=== PATIENT | female | born 1955 | race Caucasian/White ===

== ENCOUNTER 2019-02-10 05:54 | Inpatient (IN) | payer MEDICARE, OTHER ==
--- NOTE | 2019-02-05 18:13 | PREOPHP ---
DATE OF ADMISSION: 02/10/2019 The patient to have surgery with Dr. Taurus Smith 02/10/2019. Consultation requested by Dr. aTurus Smith for medical evaluation and clearance of a 63-year-old woman about to undergo surgery. Thank you, Dr. Smith, for allowing us to participate in the care of this patient. REASON FOR ADMISSION: Evangelina Amor, a 63-year-old woman, issues with her back, is currently being admitted for correction of the above problem. PAST MEDICAL AND SURGICAL HISTORY: In terms of her past medical and surgical history, she has not had any medical hospitalizations. From a surgical standpoint, had 3 sections and 1 vaginal delivery and also had an appendectomy. Other than that, she has had no other major surgical procedures, no other significant medical issues. She has not broken any bones. MEDICATIONS: She is currently taking the following medications: 1. Wellbutrin 450 mg a day. 2., Fetzima 80 mg daily 3. Baby aspirin. ALLERGIES: SHE IS NOT ALLERGIC TO ANY MEDICATIONS. SOCIAL HISTORY: The patient is , has 4 children plus 2 adopted children. One of her natural children has at age 24. She does not smoke. Alcohol socially. Does drink coffee. Has no difficulty sleeping at night. FAMILY HISTORY: Both parents are . Father of head and neck cancer at age 67. Mother at age 90 of old age, did have some mild dementia. One brother of kidney cancer. There is family history of heart and cancer as well as hypertension and stroke. REVIEW OF SYSTEMS: HEENT: Periodic migraine headaches. CARDIORESPIRATORY: Occasional chest discomfort possibly related to anxiety. GASTROINTESTINAL: No melena or hematemesis. GENITOURINARY: No urgency, frequency. GYNECOLOGIC: Post-menopause. MUSCULOSKELETAL: Positive for back pain. NEUROPSYCHIATRIC: Positive for depression. GENERAL HEALTH: As above. PHYSICAL EXAMINATION: VITAL SIGNS: The patient's blood pressure was 130/80, pulse was 76 and regular, respirations were 18, temperature 98. Height 4 feet 11 inches, weight 106 pounds. GENERAL: The patient was noted to be a well-developed, well-nourished female, alert and cooperative, in no apparent acute distress, oriented to time, place, and person. HEAD, EARS, EYES, NOSE AND THROAT: Head was atraumatic. The eyes: Pupils were equal, reactive to light and accommodation. Fundi were benign. Tympanic membranes were unremarkable. Nose was negative. Mouth was unremarkable. Fair oral hygiene was present. NECK: Supple without any rigidity. Trachea was midline. Thyroid was within normal limits. Neck veins were flat. Carotid pulses were equal. No bruits were heard. BACK: Exam was unremarkable. CHEST: Symmetrical. BREASTS AND AXILLARY: Exam did not reveal any obvious masses. LUNGS: Clear. HEART: PMI was in 5th intercostal space at the midclavicular line. A regular sinus rhythm was noted. No significant murmurs, rubs or gallops being elicited. ABDOMEN: Soft. Good bowel sounds were noted. No significant organomegaly, masses or tenderness. Scar from prior surgery being noted. GENITALIA AND PELVIRECTAL: Exam up to date per talent director. EXTREMITIES: Did not reveal any clubbing, edema or cyanosis. Peripheral pulses were physiologic. SKIN: Moist and warm without any eruptions. LYMPH NODES: No gross lymphadenopathy was noted. NEUROLOGIC: Exam was grossly intact. IMPRESSION 1. Lumbar disk disease, L4-L5, L5-S1, with an acute herniation. 2. Migraine headaches. 3. Depression. 4. Post-menopause. 5. Stable health. LABORATORY DATA: Review of laboratory and other data revealed the following: The patient's chemistry panel revealed normal electrolytes, random glucose 113. BUN, creatinine, calcium, uric acid, proteins were normal. Liver function tests revealed elevated alk phos, SGPT and SGOT; normal bilirubin. CBC, sed rate, UA, PT and PTT were basically normal. Some bacteria in the urine probably from urine sitting around a little bit too long. The patient was totally asymptomatic. DISCUSSION: Dr. Smith, I see no contraindication this patient undergoing current proposed surgery under desired form of anesthesia. I feel she is a suitable candidate at this particular point in time. I will be more than happy to follow her up with you during her stay at [facility]. Thank you again, Dr. Smith, for allowing us to participate in the care of this patient. Dictated By: SAUNDRA CALLAWAY MD SS/NTS Conf#: [id number] DID#: [id number] CC: TAURUS SMITH MD;*EndCC* MTDD
[2019-02-10] VITALS (23 sets, daily range): BP systolic 99–118; BP diastolic 53–80; PULSE 62–87; RESP 13–25; Ht 154.9 cm; Wt 47.4 kg
[~2019-02-10] VITALS: Ht 154.9 cm; Wt 47.4 kg
--- NOTE | 2019-02-10 06:44 | PREAC ---
Date/Time of Note Date/Time of Note DATE: 02/10/19 TIME: 06:43 Anesthesia Eval and Record Evaluation Time Pre-Procedure Interview DATE: 02/10/19 TIME: 06:43 Age 63 Sex female NPO: 8 hrs Preoperative diagnosis Herniated Lumbar Disc Planned procedure Lumbar L4-5 Microdisectomy Past Medical History Past Medical History: Includes Psych: Depression Surgery & Anesthesia Issues No known issue Meds Anticoagulation: No Beta Mikhail within 24 hr: No Reason Beta Mikhail not given: Pt. not on B-Mikhail Meds reviewed: Yes Allergies Coded Allergies: acetaminophen (Verified Adverse Reaction, Severe, CANNOT TAKE DUE TO LIVER DISEASE, 02/05/19) Allergies Reviewed: Yes Labs/Studies Labs Reviewed: Reviewed by anesthesiologist Blood Bank Test 02/10/19 05:51 Blood Product Summary Counts test: N/A Studies: ECG (NSR), CXR (WNL) Pre-procedure Exam Airway: Adequate mouth opening, Adequate thyromental dist Mallampati: Mallampati II Teeth: Normal Lung: Normal Heart: Normal ASA Physical Status ASA physical status: 2 Emergency: None Planned Anesthetic General/MAC: ETT Planned Pain Management Parenteral pain med Pre-operative Attestations Prior to commencing anesthesia and surgery, the patient was re-evaluated, there was verification of: *The patient's identity *The results of appropriate recent lab work and preoperative vital signs *The above evaluation not changing prior to induction *Anesthetic plan, risk benefits, alternative and complications discussed with patient/family; questions answered; patient/family understands, accepts and wishes to proceed. CHICA SANDERSON MD Feb 10, 2019 06:44
[2019-02-10] MEDS ORDERED: CEFAZOLIN 1 GM INJ ONE (06:53)
[2019-02-10] MEDS ORDERED: MIDAZOLAM 1 MG/ML 2 ML INJ ONE (06:53)
[2019-02-10] MEDS ORDERED: ROCURONIUM 50 MG INJ ONE (06:53)
[2019-02-10] MEDS ORDERED: PROPOFOL 20 ML ONE (06:53)
[2019-02-10] MEDS ORDERED: FENTAnyl 50 MCG/ML VIAL ONE ×3 (06:53→09:49)
[2019-02-10] MEDS ORDERED: GELATIN SIZE 100 SPONGE ONE (06:54)
[2019-02-10] MEDS ORDERED: THROMBIN 5000 UNIT VIAL ONE (06:54)
[2019-02-10] MEDS ORDERED: POLYMYXIN/BACITRACIN 1L IRRIG ONE (06:54)
[2019-02-10] MEDS ORDERED: BUPIVACAINE 0.25% (MPF) 30 ML INJ ONE (06:54)
--- NOTE | 2019-02-10 06:58 | HPN ---
Date/Time of Note Date/Time of Note DATE: 02/10/19 TIME: 06:57 Interval H&P Admission Note Pt. seen H&P reviewed: No system changes CHRISTIANO SMITH MD Feb 10, 2019 06:58
[2019-02-10] MEDS ORDERED: DIPHENHYDRAMINE 50 MG INJ IV PRN (07:00)
[2019-02-10] MEDS ORDERED: MEPERIDINE 25 MG INJ IV PRN (07:00)
[2019-02-10] MEDS ORDERED: METOCLOPRAMIDE 10 MG INJ IV PRN (07:00)
[2019-02-10] MEDS ORDERED: PHENYLephrine (100 MCG/ML) 10ML SYG ONE (07:00)
[2019-02-10] MEDS ORDERED: hydrALAzine 20 MG INJ IV PRN (07:00)
[2019-02-10] MEDS ORDERED: HYDROmorphONE 1 MG/5 ML IV SYRINGE IV PRN ×3 (07:00)
[2019-02-10] MEDS ORDERED: EPHEDrine 25 MG/5 ML SYG IV PRN (07:00)
[2019-02-10] MEDS ORDERED: LABETALOL HCL 20MG INJ IV PRN (07:00)
[2019-02-10] MEDS ORDERED: CEFAZOLIN 2 GM/50 ML (PMX) 50 ML IVPB SCH (07:00)
[2019-02-10] MEDS ORDERED: LACTATED RINGER'S 1,000 ML IV SCH ×2 (07:00)
[2019-02-10] MEDS ORDERED: FENTAnyl 50 MCG/ML VIAL IV PRN ×3 (07:00)
[2019-02-10] MEDS ORDERED: ONDANSETRON 4 MG INJ IV PRN ×2 (07:00→10:30)
[2019-02-10] MEDS ORDERED: URSO500T7 ORAL (07:34)
[2019-02-10] MEDS ORDERED: [UNRECOGNIZED DRUG - CODE] PO (07:34)
[2019-02-10] MEDS ORDERED: ARIP5TAB14 PO (07:34)
[2019-02-10] MEDS ORDERED: BUPR-75 PO (07:34)
[2019-02-10] MEDS ORDERED: LORA1TAB PO (07:34)
[2019-02-10] MEDS ORDERED: LABETALOL HCL 20MG INJ ONE (07:39)
[2019-02-10] MEDS ORDERED: METOCLOPRAMIDE 10 MG INJ ONE (07:49)
[2019-02-10] MEDS ORDERED: ONDANSETRON 4 MG INJ ONE (07:49)
[2019-02-10] MEDS ORDERED: DEXAMETHASONE 4 MG/ML 5 ML INJ ONE (07:49)
[2019-02-10] MEDS ORDERED: SUGAMMADEX SODIUM 200 MG/2 ML VIAL IV ONE (09:00)
--- NOTE | 2019-02-10 09:55 | PAC ---
Date/Time of Note Date/Time of Note DATE: 02/10/19 TIME: 09:54 Post-Anesthesia Notes Post-Anesthesia Note Last documented vital signs Vital Signs Date Temp Pulse Resp B/P (MAP) Pulse Ox O2 O2 Flow FiO2 Time Delivery Rate 02/10/19 98.4 80 16 113/62 100 Room Air 10:02 (79) Activity: WNL Respiratory function: WNL Cardiovascular function: WNL Mental status: Baseline Pain reasonably controlled: Yes Hydration appropriate: Yes Nausea/Vomiting absent: Yes CHICA SANDERSON MD Feb 10, 2019 09:55
--- NOTE | 2019-02-10 10:24 | SIPON ---
Date/Time of Note Date/Time of Note DATE: 02/10/19 TIME: 10:19 Operative Report Preoperative Diagnosis HNP L4-5 right (calcified) HNP L5-S1 right Postoperative Diagnosis Same Operation/Procedure Performed Right hemilaminotomy L4 Right hemilaminotomy L5 Microdiscectomy L4-5 and L5-S1 on the right Medial facetectomy and foraminotomy L4-5 and L5-S1 on the right Cosmetic wound closure (5 cm) Lateral localizing lumbar radiographs (2) Intraoperative nerve monitoring (2 hours and 45 minutes) Surgeon see signature line assistant buyer Vaishnavi Mobley PA-C Anesthesia: general Estimated blood loss: 10 - 50 ml's Transfusion Required none Specimen Disc material L4-5 and L5-S1 on the right Grafts/Implants none Complications none CHRISTIANO SMITH MD Feb 10, 2019 10:24
[2019-02-10] MEDS ORDERED: DIAZEPAM 5 MG/ML SYG IM PRN (10:30)
[2019-02-10] MEDS ORDERED: NALOXONE (0.4 MG/ML) INJ IV PRN (10:30)
[2019-02-10] MEDS ORDERED: TRIMETHOBENZAMIDE 100 MG/ML VIAL IM PRN (10:30)
[2019-02-10] MEDS ORDERED: NACL 0.9% 3 ML SYG IV SCH (10:30)
[2019-02-10] MEDS ORDERED: HYDROmorphONE 0.2 MG/ML PCA IV SCH (10:30)
[2019-02-10] MEDS ORDERED: ZOLPIDEM 5 MG TAB PO PRN (10:30)
[2019-02-10] MEDS ORDERED: AL HYDROX/MG HYDROX/SIMETH 30 ML CUP PO PRN (10:30)
[2019-02-10] MEDS ORDERED: CEPASTAT LOZENGE MT PRN (10:30)
[2019-02-10] MEDS ORDERED: DIPHENHYDRAMINE 50 MG CAP PO PRN (10:30)
[2019-02-10] MEDS ORDERED: BETHANECHOL 25 MG TAB PO PRN (10:30)
[2019-02-10] MEDS ORDERED: PROCHLORPERAZINE 10 MG TAB PO PRN (10:30)
[2019-02-10] MEDS: DEXTROSE 5%-0.45% NACL 1,000 ML IV SCH ×3 (11:02→22:57)
[2019-02-10] MEDS: CEFAZOLIN 1 GM/50 ML (PMX) 50 ML IVPB SCH ×3 (11:09→22:51)
[2019-02-10] MEDS: DIAZEPAM 5 MG TAB PO PRN ×3 (12:13→22:04)
--- NOTE | 2019-02-10 12:51 | OPR ---
DATE OF OPERATION: 02/10/2019 PREOPERATIVE DIAGNOSIS: Herniated disk, L4-5 on the right with inferior extruded disk fragments and L5-S1 on the right. Treatment options were discussed with the patient, she elected to proceed with maksim. POSTOPERATIVE DIAGNOSIS: Herniated disk, L4-5 on the right with inferior extruded disk fragments and L5-S1 on the right. Treatment options were discussed with the patient, she elected to proceed with surgery. OPERATIVE PROCEDURE PERFORMED: 1. Right hemilaminotomy, L4. 2. Right hemilaminectomy L5. 3. Microdiskectomy L4-L5 and L5-S1 on the right. 4. Medial facetectomy and foraminotomy L4-L5 and L5-S1 on the right. 5. Cosmetic wound closure (5 cm). 6. Lateral localizing lumbar radiographs (2). 7. Intraoperative nerve monitoring (2 hours and 45 minutes). SURGEON: Taurus Estrella MD INSTRUCTOR PHYSICAL: Rosita Mobley PA-C ANESTHESIA: General endotracheal. ANESTHESIOLOGIST: Jass Cooper MD ESTIMATED BLOOD LOSS: 30 mL, none replaced. DRAINS: Two medium Hemovac drains employed. COMPLICATIONS: None. PERTINENT HISTORY AND PHYSICAL: This is a 63-year-old female with persistent back and right leg pain which has been unrelieved by conservative management. She has undergone a number of diagnostic stud ies including an MRI of the lumbar spine, which demonstrated herniation of the L4-L5 disk on the righ t with inferior extruded disk fragments and herniation at L5-S1. Treatment options discussed with th e patient, she elected to proceed with surgery. OPERATIVE FINDINGS AT SURGERY: A small right paracentral and foraminal herniation L5-S1 was confirme d, as was a small right-sided calcified herniation at L4-L5 with some extruded disk material below th e disk space that was also calcified. The baseline intraoperative nerve monitoring revealed decrease in the right L4 potential of 30%, the right L5 potential of 40%, and the right S1 potential of 40%. These all returned to normal at the completion of the surgery. OPERATIVE PROCEDURE: With the patient in supine position after satisfactory induction of general end otracheal anesthesia by Dr. Cooper, the patient was turned to the prone kneeling position on to the Ffii frame. All pressure points were carefully padded. Back was prepped and draped in usual sumit rile fashion. Athrombic pumps were applied to the legs below the knees to prevent venous stasis duri ng the procedure. An indwelling Barrett catheter was also placed preoperative to facilitate bladder dr ainajad during and after procedure. Two spinal needles placed next to what was felt to be the L4 and L5 spinous processes, lateral radiograms taken which confirmed anatomic localization. A 5 cm incisio n then carried midline over the spinous process of L4 and L5 after skin was infiltrated with 0.25% Ma rcaine without epinephrine for postoperative analgesia. Superficial retractors were placed and hemos tasis secured with electrocautery. Throughout the procedure, copious amounts of antibacterial irriga ting solution used to periodically irrigate the wound. The fascia was incised in midline with a hot knife and unilateral subperiosteal dissection carried out at L4 and L5 on the right. Deep retractors were placed and deep hemostasis secured with electrocautery. A second intraoperative radiograph was taken with Abdoulaye clamp placed and felt to be the spinous process of L4 and L5. This was confirmed with second x-ray. A right hemilaminotomy at L4 and a right hemilaminectomy at L5 was then carried o ut using Leksell rongeur, Kerrison punches and curettes. Ligamentum flavum was incised with sharp di ssection. The operating microscope was moved into place. A medial facetectomy and foraminotomy was accomplished at L4-L5 and L5-S1 on the right using small hand osteotome, mallet, Kerrison punches and curettes. The L5 root was mobilized medially and protected with D'Errico nerve retractor using micr odissection technique. This revealed a herniation of the L5-S1 disk. A 15 blade knife used to cut a rectangular window in the annulus and posterior longitudinal ligament and multiple degenerative disk fragments were harvested with pituitary rongeurs and sent to laboratory for pathologic study. Addit ional fragments were harvested using Teresa curettes. A thorough search of the floor of the canal w as made with an arthroscopic probe. No additional fragments were encountered. Attention then turned to the L4-L5 disk where a 15 blade knife was used to cut a rectangular window i n the annulus and posterior longitudinal ligament. However, the disk was calcified and a small curet was needed to gain access to the disk space. The straight and angulated pituitary rongeurs were use d to evacuate disk material from the disk space. Teresa curettes were used to augment the harvest o f disk material. The dissection was carried distally, and a calcified disk fragment was identified b elow the level of the disk space, this was impacted with a round punch as it defied removal with a #1 5 blade knife. The epidural hemostasis was secured with bipolar electrocautery on a low setting. e anesthesiologist was asked to perform a Valsalva maneuver at 40 mmHg and no spinal fluid leak was n oted. The wound was then closed in layers over 2 medium Hemovac drains, one below the fascia, one ab ove the fascia using #1 Vicryl [id number] approximating sutures in deep paralumbar musculature a nd deep fascia of back, 2-0 Vicryl subcutaneous approximating sutures in subcu tissue, and a 4-0 Vicr yl subcuticular cosmetic closing suture on the skin. Dermabond and sterile compressive dressings wer e applied. The patient having tolerated procedure well, was then turned to the supine position on to her bed and extubated by Dr. Cooper. She was transported to the recovery room in [facility]. At the conclusion of procedure, sponge, instrument, and needle counts were all correct. NEED FOR FINANCIAL SALES ADVISOR: During this spinal surgical procedure, my retail assistant was used to retract and protect the spinal nerves and dural sac. My retail assistant also employed the suction catheters to marjorie love blood from the surgical field to improve visualization of the neural structures. The retail assistant was medically necessary to facilitate the completion of the surgery in a safe and expeditious manner. [facility] [place] regulations, as well as hospital bylaws, preclude the use of non-licensed health care personnel such as operating room technicians, to perform these functions. Throughout the procedure, neural monitoring was carried out by Wink including EMG, SSEP a nd MEP monitoring of the L3, L4, L5 and S1 nerve roots bilaterally along with spinal cord potentials. These were interpreted in real time by Dr. Trae Kuhn. Dictated By: TAURUS ESTRELLA MD TM/NTS Conf#: [id number] DID#: [id number] CC: SAUNDRA CALLAWAY MD; ROSITA NICHOLAS;*End*
[2019-02-10] MEDS ORDERED: LORAZEPAM 1 MG TAB PO PRN (14:30)
[2019-02-10] MEDS: HYDROmorphONE 0.2 MG/ML PCA IV SCH (18:32)
--- NOTE | 2019-02-10 19:48 | CONS ---
Assessment/Plan Assessment/Plan Problems: (1) Major depressive disorder, recurrent, in full remission Status: Chronic Comment: Cont. buproprion, desipramine, aripiprazole as per home regimen. Cont. lorazepam prn. (2) Migraine without aura and without status migrainosus, not intractable Status: Chronic Comment: On no meds for this at this time although possibly desipramine being used as preventive. Will cont. (3) Menopausal and perimenopausal disorder Status: Chronic Comment: Cont. desipramine and bupropion (4) Primary biliary cirrhosis Status: Chronic Comment: Cont. urosdiol 1,000 mg nightly. (5) E. coli urinary tract infection Status: Acute Comment: Found in our office. Resistant to quinolones. Start bactrim DS bid x 7 days. (6) Herniated lumbar intervertebral disc Status: Resolved Comment: Per primary team (7) Status post lumbar microdiscectomy Status: Acute Comment: Doing well POD#0. Pain control and PT per primary team. Will cont. home meds and monitor for any medical issues should they arise. Pt. medically stable at this time for d/c once cleared by primary team. Consultation Date/Type/Reason Admit Date/Time Feb 10, 2019 at 05:54 Date of Consultation: Feb 10, 2019 Type of Consult Medicine Reason for Consultation Medical Management Requesting Provider: CHRISTIANO SMITH MD Date/Time of Note DATE: 02/10/19 TIME: 19:37 Hx of Present Illness 63 y/o C F w/ h/o depression, PBC, migraines, menopause who has had progressive lumbar pain w/ radiculopathy. Sought consultation w/ ortho who found pt. has HD. Taken today for microdiskectomies and lumbar lami. Now POD#0 and doing well. Constitutional: no complaints Eyes: no complaints ENT: pain (sore throat post-op) Respiratory: no complaints Cardiovascular: no complaints Gastrointestinal: no complaints Genitourinary: no complaints Musculoskeletal: back pain (mild, post-op) Neurologic: no complaints Past Medical History Medical History: other (depression, migraines, PBC) Home Meds Reported Medications Lorazepam* (Lorazepam*) 1 Mg Tablet, 1 MG PO HS PRN for ANXIETY, #30 TAB 02/10/19 Aripiprazole* (Abilify*) 5 Mg Tab, 5 MG PO DAILY, #30 TAB 02/10/19 Bupropion Hcl* (Wellbutrin XL*) 150 Mg Tab.sr.24h, 450 MG PO DAILY, TAB.SA 02/10/19 Desipramine Hcl* (Desipramine Hcl*) 150 Mg Tablet, 150 MG PO HS, TAB 02/10/19 Ursodiol (Kristel Forte) 500 Mg Tablet, 2 TAB ORAL QHS 02/10/19 Medications Current Medications Dextrose/Sodium Chloride 1,000 ml @ 100 mls/hr Q10H IV Last administered on 02/10/19at 12:13; Admin Dose 100 MLS/HR; Start 02/10/19 at 10:12 Cefazolin Sodium 50 ml @ 100 mls/hr Q6 IVPB Last administered on 02/10/19at 17:31; Admin Dose 100 MLS/HR; Start 02/10/19 at 12:00; Stop 02/11/19 at 06:29 Zolpidem Tartrate (Ambien) 5 mg HS PRN PO .INSOMNIA; Start 02/10/19 at 10:30 Prochlorperazine (Compazine) 10 mg Q4H PRN PO NAUSEA/VOMITING; Start 02/10/19 at 10:30 Trimethobenzamide HCl (Tigan) 200 mg Q4H PRN IM NAUSEA/VOMITING; Start 02/10/19 at 10:30 Ondansetron HCl (Zofran Inj) 4 mg Q6H PRN IV NAUSEA/VOMITING; Start 02/10/19 at 10:30 Al Hydrox/Mg Hydrox/Simethicone (Mag-Al Plus) 15 ml Q4H PRN PO .CONSTIPATION; Start 02/10/19 at 10:30 Docusate Sodium (Colace) 100 mg BID PO ; Start 02/11/19 at 09:00 Ascorbic Acid (Vitamin C) 1,000 mg BID PO ; Start 02/11/19 at 09:00 Ferrous Sulfate (Ferrous Sulfate (Ec)) 325 mg TID PO ; Start 02/11/19 at 09:00 Ranitidine HCl (Zantac) 150 mg BID PO ; Start 02/10/19 at 21:00 Diazepam (Valium) 5 mg Q4H PRN PO .MUSCLE SPASM Last administered on 02/10/19at 17:31; Admin Dose 5 MG; Start 02/10/19 at 10:30 Diazepam (Valium) 5 mg Q4H PRN IM .MUSCLE SPASM; Start 02/10/19 at 10:30 Phenol (Cepastat Lozenge) 1 lozenge PRN PRN MT .SORE THROAT; Start 02/10/19 at 10:30 Bethanechol Chloride (Urecholine) 25 mg PRN PRN PO .UNABLE TO VOID; Start 02/10/19 at 10:30 Diphenhydramine HCl (Benadryl) 50 mg Q6H PRN PO .PRURITUS; Start 02/10/19 at 10:30 IV Flush (NS 3 ml) 3 ml PER PROTOCOL IV ; Start 02/10/19 at 10:30 Naloxone HCl (Narcan) 0.2 mg Q2M PRN IV RR 8 BREATHS/MIN OR LESS; Start 02/10/19 at 10:30 Hydromorphone HCl (Dilaudid BALCONY WORKER) Q4PCA IV Last administered on 02/10/19at 18:32; Admin Dose 6 MG; Start 02/10/19 at 12:30 Aripiprazole (Abilify) 5 mg DAILY PO ; Start 02/11/19 at 09:00 Bupropion HCl (Wellbutrin Xl) 450 mg DAILY PO ; Start 02/11/19 at 09:00 Desipramine HCl (Norpramin) 150 mg HS PO ; Start 02/10/19 at 21:00; Status UNV Lorazepam (Ativan) 1 mg HS PRN PO ANXIETY; Start 02/10/19 at 14:30 Ursodiol (Kristel) 500 mg HS PO ; Start 02/10/19 at 21:00 Trimethoprim/ Sulfamethoxazole (Bactrim (Ds)) 1 tab BID PO ; Start 02/10/19 at 21:00; Stop 02/17/19 at 10:00 Miscellaneous Information (*Order Clarification Bulletin) NORPRAMINE (DESIPRAMINE) 150 MG ... Q8H XX ; Start 02/10/19 at 14:30 Allergies: Coded Allergies: acetaminophen (Verified Adverse Reaction, Severe, CANNOT TAKE DUE TO LIVER DISEASE, 02/05/19) Past Surgical History Past Surgical Hx: appendectomy, other (c-sect x 3) Family History Significant Family History: cancer (head/neck and kidney), vascular disease (stroke), other (dementia) Social History , 6 children (2 adopted), 1 child Alcohol Use: occasionally Smoking Status: Never smoker Drug Use: none Exam/Review of Systems Exam Vitals VS - Last 72 Hours, by Label Date Temp Pulse Resp B/P (MAP) Pulse Ox O2 O2 Flow FiO2 Time Delivery Rate 02/10/19 18 18:32 02/10/19 18 17:00 02/10/19 97.8 81 18 109/80 99 Nasal 2.0 14:25 (90) Cannula 02/10/19 97.8 87 18 107/60 99 Nasal 2.0 13:25 (76) Cannula 02/10/19 97.8 81 18 111/64 99 Nasal 2.0 12:55 (80) Cannula 02/10/19 97.8 83 18 112/65 99 Nasal 2.0 12:25 (81) Cannula 02/10/19 97.8 80 18 116/66 97 Nasal 2.0 12:10 (83) Cannula 02/10/19 97.8 76 18 117/63 94 Nasal 2.0 11:55 (81) Cannula 02/10/19 18 11:48 02/10/19 97.8 77 18 111/61 99 Nasal 2.0 11:40 (78) Cannula 02/10/19 74 13 103/53 100 Nasal 2.0 10:58 (70) Cannula 02/10/19 72 21 109/59 100 Nasal 2.0 10:53 (76) Cannula 02/10/19 70 25 111/67 100 Nasal 2.0 10:48 (82) Cannula 02/10/19 70 24 108/64 100 Nasal 2.0 10:43 (79) Cannula 02/10/19 70 21 109/62 100 Nasal 2.0 10:38 (78) Cannula 02/10/19 68 14 104/59 100 Nasal 2.0 10:33 (74) Cannula 02/10/19 68 15 112/64 100 Nasal 2.0 10:28 (80) Cannula 02/10/19 68 15 101/58 100 Nasal 2.0 10:23 (72) Cannula 02/10/19 68 15 113/65 100 Nasal 2.0 10:18 (81) Cannula 02/10/19 68 16 108/64 100 Nasal 2.0 10:13 (79) Cannula 02/10/19 66 13 108/58 100 Nasal 2.0 10:08 (75) Cannula 02/10/19 64 21 110/63 100 Mask 6.0 10:03 (79) 02/10/19 98.0 09:59 02/10/19 62 19 103/65 100 Mask 6.0 09:58 (78) 02/10/19 98.1 66 16 99/56 (70) 100 Mask 6.0 09:53 02/10/19 98.4 80 16 113/62 100 Room Air 07:02 (79) Vital Signs Date Temp Pulse Resp B/P (MAP) Pulse Ox O2 O2 Flow FiO2 Time Delivery Rate 02/10/19 18 18:32 02/10/19 97.8 81 109/80 99 Nasal 2.0 14:25 (90) Cannula Constitutional: alert, oriented, well developed Psych: no complaints, nl mood/affect Eyes: nl conjunctiva, EOMI, nl lids, nl sclera, PERRL ENMT: nl external ears & nose, mucosa pink and moist Neck: supple, non-tender; No bruits, No masses, No thyromegaly Respiratory: clear to auscultation, normal air movement Cardiovascular: regular rate and rhythm, nl pulses; No edema, No murmurs/extra sounds, No rub Gastrointestinal: soft, nl liver, spleen, non-tender, bowel sounds; No mass, No rebound or guarding Musculoskeletal: nl extremities to inspection Extremities: normal pulses; No cyanosis, No clubbing, No edema Neurological: B[employer] REPAIR PERSON II-XII intact, nl mental status, nl speech, nl strength Medications Medication Current Medications Dextrose/Sodium Chloride 1,000 ml @ 100 mls/hr Q10H IV Last administered on 02/10/19at 12:13; Admin Dose 100 MLS/HR; Start 02/10/19 at 10:12 Cefazolin Sodium 50 ml @ 100 mls/hr Q6 IVPB Last administered on 02/10/19at 17:31; Admin Dose 100 MLS/HR; Start 02/10/19 at 12:00; Stop 02/11/19 at 06:29 Zolpidem Tartrate (Ambien) 5 mg HS PRN PO .INSOMNIA; Start 02/10/19 at 10:30 Prochlorperazine (Compazine) 10 mg Q4H PRN PO NAUSEA/VOMITING; Start 02/10/19 at 10:30 Trimethobenzamide HCl (Tigan) 200 mg Q4H PRN IM NAUSEA/VOMITING; Start 02/10/19 at 10:30 Ondansetron HCl (Zofran Inj) 4 mg Q6H PRN IV NAUSEA/VOMITING; Start 02/10/19 at 10:30 Al Hydrox/Mg Hydrox/Simethicone (Mag-Al Plus) 15 ml Q4H PRN PO .CONSTIPATION; Start 02/10/19 at 10:30 Docusate Sodium (Colace) 100 mg BID PO ; Start 02/11/19 at 09:00 Ascorbic Acid (Vitamin C) 1,000 mg BID PO ; Start 02/11/19 at 09:00 Ferrous Sulfate (Ferrous Sulfate (Ec)) 325 mg TID PO ; Start 02/11/19 at 09:00 Ranitidine HCl (Zantac) 150 mg BID PO ; Start 02/10/19 at 21:00 Diazepam (Valium) 5 mg Q4H PRN PO .MUSCLE SPASM Last administered on 02/10/19at 17:31; Admin Dose 5 MG; Start 02/10/19 at 10:30 Diazepam (Valium) 5 mg Q4H PRN IM .MUSCLE SPASM; Start 02/10/19 at 10:30 Phenol (Cepastat Lozenge) 1 lozenge PRN PRN MT .SORE THROAT; Start 02/10/19 at 10:30 Bethanechol Chloride (Urecholine) 25 mg PRN PRN PO .UNABLE TO VOID; Start 02/10/19 at 10:30 Diphenhydramine HCl (Benadryl) 50 mg Q6H PRN PO .PRURITUS; Start 02/10/19 at 10:30 IV Flush (NS 3 ml) 3 ml PER PROTOCOL IV ; Start 02/10/19 at 10:30 Naloxone HCl (Narcan) 0.2 mg Q2M PRN IV RR 8 BREATHS/MIN OR LESS; Start 02/10/19 at 10:30 Hydromorphone HCl (Dilaudid BALCONY WORKER) Q4PCA IV Last administered on 02/10/19at 18:32; Admin Dose 6 MG; Start 02/10/19 at 12:30 Aripiprazole (Abilify) 5 mg DAILY PO ; Start 02/11/19 at 09:00 Bupropion HCl (Wellbutrin Xl) 450 mg DAILY PO ; Start 02/11/19 at 09:00 Desipramine HCl (Norpramin) 150 mg HS PO ; Start 02/10/19 at 21:00; Status UNV Lorazepam (Ativan) 1 mg HS PRN PO ANXIETY; Start 02/10/19 at 14:30 Ursodiol (Kristel) 500 mg HS PO ; Start 02/10/19 at 21:00 Trimethoprim/ Sulfamethoxazole (Bactrim (Ds)) 1 tab BID PO ; Start 02/10/19 at 21:00; Stop 02/17/19 at 10:00 Miscellaneous Information (*Order Clarification Bulletin) NORPRAMINE (DESIPR AMINE) 150 MG ... Q8H XX ; Start 02/10/19 at 14:30 SHASHANK GREEN MD Feb 10, 2019 19:48
[2019-02-10] MEDS ORDERED: SUMATRIPTAN 50 MG TAB PO PRN (20:00)
[2019-02-10] MEDS ORDERED: SUMATRIPTAN 50 MG TAB PO ONE (20:00)
[2019-02-10] MEDS ORDERED: URSODIOL 250 MG TAB PO SCH (21:00)
[2019-02-10] MEDS ORDERED: DESIPRAMINE 25 MG TAB PO SCH (21:00)
[2019-02-10] MEDS: RANITIDINE 150 MG TAB PO SCH (22:03)
[2019-02-10] MEDS: TRIMETHOPRIM/SULFAMETHOX (DS) TAB PO SCH (22:04)
[2019-02-10] MEDS: URSODIOL 250 MG TAB PO SCH (22:04)
[2019-02-11] MEDS ORDERED: METOCLOPRAMIDE 10 MG INJ IV SCH
[2019-02-11 01:39] VITALS: BP 109/58; PULSE 75; RESP 18
[2019-02-11] MEDS: HYDROmorphONE 0.2 MG/ML PCA IV SCH (04:31)
[2019-02-11] MEDS: CEFAZOLIN 1 GM/50 ML (PMX) 50 ML IVPB SCH (05:48)
[2019-02-11] MEDS ORDERED: METOCLOPRAMIDE 10 MG INJ IV PRN (06:00)
--- NOTE | 2019-02-11 07:10 | PN ---
Date/Time of Note Date/Time of Note DATE: 02/11/19 TIME: 07:07 Assessment/Plan Lines/Catheters IV Catheter Type (from Nrsg): Peripheral IV Barrett in Place (from Nrsg): Yes Subjective 24 Hr Interval Summary The patient is postop day #1 following a microdiscectomy at L4-5 and L5-S1 on the right. She is resting comfortably in bed. She is afebrile. Neurovascular structures are intact distally. A Barrett catheter is in place. Her a.m. lab work is unremarkable with exception of a mild hypokalemia (3.3). Her Hemovac had 40 cc since last night and will be left in place. She will be mobilized as tolerated by physical therapy. She has been told not to take Tylenol, due to some liver issues. I have therefore not ordered oral analgesics, and have asked the nurse to check with Dr. Dorman or Norah regarding appropriate postop oral medication for pain. I will also defer the management of her hypokalemia to them. Exam/Review of Systems Vital Signs Vitals Vital Signs Date Temp Pulse Resp B/P (MAP) Pulse Ox O2 O2 Flow FiO2 Time Delivery Rate 02/11/19 05:00 02/11/19 98.1 75 109/58 97 Nasal 2.0 01:39 (75) Cannula Intake and Output 02/10/19 02/10/19 02/11/19 1515:00 23:00 07:00 IntakeIntake Total 2550 ml 1050 ml 700 ml OutputOutput Total 300 ml 1125 ml 1840 ml BalanceBalance 2250 ml -75 ml -1140 ml Results Result Diagram: 02/11/19 0431 02/11/19 0431 CHRISTIANO SMITH MD Feb 11, 2019 07:10
[2019-02-11 07:30] VITALS: BP 114/59; PULSE 85; RESP 18
[2019-02-11] MEDS ORDERED: BETHANECHOL 25 MG TAB PO PRN (08:00)
[2019-02-11] MEDS ORDERED: HYDROmorphONE 2 MG TAB PO PRN ×3 (09:00→17:00)
[2019-02-11] MEDS: RANITIDINE 150 MG TAB PO SCH ×2 (09:49→20:22)
[2019-02-11] MEDS: DOCUSATE SODIUM 100 MG CAP PO SCH ×2 (09:51→20:22)
[2019-02-11] MEDS: ASCORBIC ACID 500 MG TAB PO SCH ×2 (09:53→20:22)
[2019-02-11] MEDS: BUPROPION (XL) 150 MG TAB PO SCH (09:53)
[2019-02-11] MEDS: FERROUS SULFATE (EC) 325 MG TAB PO SCH ×3 (09:53→20:23)
[2019-02-11] MEDS: ARIPIPRAZOLE 5 MG TAB PO SCH (09:53)
[2019-02-11] MEDS: TRIMETHOPRIM/SULFAMETHOX (DS) TAB PO SCH ×2 (09:54→20:22)
[2019-02-11 14:31] VITALS: BP 131/65; PULSE 97; RESP 18
[2019-02-11] MEDS ORDERED: METHYLNALTREXONE 12 MG/0.6 ML VIAL SC SCH (18:00)
--- NOTE | 2019-02-11 18:07 | CONS ---
Assessment/Plan Assessment/Plan Problems: (1) Major depressive disorder, recurrent, in full remission Status: Chronic Comment: Cont. aripiprazole and bupropion. Not receiving desipramine b/c not available (2) Migraine without aura and without status migrainosus, not intractable Status: Chronic Comment: Sumatriptan prn (3) Menopausal and perimenopausal disorder Status: Chronic Comment: Cont. bupropion (4) E. coli urinary tract infection Status: Acute Comment: Cont. bactrim (5) Primary biliary cirrhosis Status: Chronic Comment: Cont. ursodiol. Hold acetaminophen containing products (6) Constipation due to opioid therapy Status: Acute Comment: Methylnaltrexone 12 mcg sq x 1 (7) Status post lumbar microdiscectomy Status: Acute Comment: Doing fair POD#1. Drain removed. Off BAT LATHE OPERATOR. Pain control inadequate. Will change from oral dilaudid to oral oxycodone 10 mg q4 prn and add lyrica 50 mg tid. PT states pt. could benefit from 1 more day of inpt. PT. Likely d/c home tomorrow provided pain controlled. Consultation Date/Type/Reason Admit Date/Time Feb 10, 2019 at 05:54 Initial Consult Date 02/10/19 Type of Consult Medicine Reason for Consultation Medical Management Requesting Provider: CHRISTIANO SMITH MD Date/Time of Note DATE: 02/11/19 TIME: 18:01 24 HR Interval Summary Constitutional: no complaints Detailed Summary Respiratory: no complaints Cardiovascular: no complaints Gastrointestinal: constipation Genitourinary: no complaints Musculoskeletal: back pain (oral dilaudid failing to control pain when she is in motion; in bed feels ok) Neurologic: no complaints Exam/Review of Systems Exam Vitals VS - Last 72 Hours, by Label Date Temp Pulse Resp B/P (MAP) Pulse Ox O2 O2 Flow FiO2 Time Delivery Rate 02/11/19 98.2 97 18 131/65 99 Room Air 14:31 (87) 02/11/19 18 09:59 02/11/19 98.3 85 18 114/59 98 07:30 (77) 02/11/19 19 05:00 02/11/19 98.1 75 18 109/58 97 Nasal 2.0 01:39 (75) Cannula 02/11/19 01:00 02/10/19 22:15 02/10/19 98.0 75 18 118/67 98 Nasal 2.0 20:41 (84) Cannula 02/10/19 18 18:32 02/10/19 18 17:00 02/10/19 97.8 81 18 109/80 99 Nasal 2.0 14:25 (90) Cannula 02/10/19 97.8 87 18 107/60 99 Nasal 2.0 13:25 (76) Cannula 02/10/19 97.8 81 18 111/64 99 Nasal 2.0 12:55 (80) Cannula 02/10/19 97.8 83 18 112/65 99 Nasal 2.0 12:25 (81) Cannula 02/10/19 97.8 80 18 116/66 97 Nasal 2.0 12:10 (83) Cannula 02/10/19 97.8 76 18 117/63 94 Nasal 2.0 11:55 (81) Cannula 02/10/19 18 11:48 02/10/19 97.8 77 18 111/61 99 Nasal 2.0 11:40 (78) Cannula 02/10/19 74 13 103/53 100 Nasal 2.0 10:58 (70) Cannula 02/10/19 72 21 109/59 100 Nasal 2.0 10:53 (76) Cannula 02/10/19 70 25 111/67 100 Nasal 2.0 10:48 (82) Cannula 02/10/19 70 24 108/64 100 Nasal 2.0 10:43 (79) Cannula 02/10/19 70 21 109/62 100 Nasal 2.0 10:38 (78) Cannula 02/10/19 68 14 104/59 100 Nasal 2.0 10:33 (74) Cannula 02/10/19 68 15 112/64 100 Nasal 2.0 10:28 (80) Cannula 02/10/19 68 15 101/58 100 Nasal 2.0 10:23 (72) Cannula 02/10/19 68 15 113/65 100 Nasal 2.0 10:18 (81) Cannula 02/10/19 68 16 108/64 100 Nasal 2.0 10:13 (79) Cannula 02/10/19 66 13 108/58 100 Nasal 2.0 10:08 (75) Cannula 02/10/19 64 21 110/63 100 Mask 6.0 10:03 (79) 02/10/19 98.0 09:59 02/10/19 62 19 103/65 100 Mask 6.0 09:58 (78) 02/10/19 98.1 66 16 99/56 (70) 100 Mask 6.0 09:53 02/10/19 98.4 80 16 113/62 100 Room Air 07:02 (79) Vital Signs Date Temp Pulse Resp B/P (MAP) Pulse Ox O2 O2 Flow FiO2 Time Delivery Rate 02/11/19 98.2 97 18 131/65 99 Room Air 14:31 (87) 02/11/19 2.0 01:39 Intake and Output 02/10/19 02/10/19 02/11/19 1515:00 23:00 07:00 IntakeIntake Total 2550 ml 1050 ml 700 ml OutputOutput Total 300 ml 1125 ml 1840 ml BalanceBalance 2250 ml -75 ml -1140 ml Constitutional: alert, oriented, well developed Psych: no complaints, nl mood/affect Respiratory: clear to auscultation, normal air movement Cardiovascular: regular rate and rhythm, nl pulses; No edema, No murmurs/extra sounds, No rub Gastrointestinal: soft, nl liver, spleen, non-tender, bowel sounds; No mass, No rebound or guarding Musculoskeletal: nl extremities to inspection Extremities: normal pulses; No cyanosis, No clubbing, No edema Neurological: [employer] PRICING CONSULTANT II-XII intact, nl mental status, nl speech, nl strength Results Result Diagram: 02/11/191 02/11/19 0431 Results 24hrs Laboratory Tests Test 02/11/19 04:31 02/11/19 11:20 Hemoglobin 10.8 L Hematocrit 33.8 L Sodium Level 138 Potassium Level 3.3 L Chloride Level 108 Carbon Dioxide Level 27 Anion Gap 3 L Blood Urea Nitrogen 5 L Creatinine 0.50 Est Glomerular Filtrat Rate mL/min > 60 Glucose Level 128 Calcium Level 8.3 L Urine Color STRAW Urine Clarity CLEAR Urine pH 7.0 Urine Specific Bertrand 1.004 Urine Ketones NEGATIVE Urine Nitrite NEGATIVE Urine Bilirubin NEGATIVE Urine Urobilinogen NEGATIVE Urine Leukocyte Esterase NEGATIVE Urine Hemoglobin NEGATIVE Urine Glucose NEGATIVE Urine Total Protein NEGATIVE Medications Medication Current Medications Zolpidem Tartrate (Ambien) 5 mg HS PRN PO .INSOMNIA; Start 02/10/19 at 10:30 Prochlorperazine (Compazine) 10 mg Q4H PRN PO NAUSEA/VOMITING; Start 02/10/19 at 10:30 Trimethobenzamide HCl (Tigan) 200 mg Q4H PRN IM NAUSEA/VOMITING; Start 02/10/19 at 10:30 Ondansetron HCl (Zofran Inj) 4 mg Q6H PRN IV NAUSEA/VOMITING Last administered on 02/10/19at 20:45; Admin Dose 4 MG; Start 02/10/19 at 10:30 Al Hydrox/Mg Hydrox/Simethicone (Mag-Al Plus) 15 ml Q4H PRN PO .CONSTIPATION; Start 02/10/19 at 10:30 Docusate Sodium (Colace) 100 mg BID PO Last administered on 02/11/19 09:51; Admin Dose 100 MG; Start 02/11/19 at 09:00 Ascorbic Acid (Vitamin C) 1,000 mg BID PO Last administered on 02/11/19 09:53; Admin Dose 1,000 MG; Start 02/11/19 at 09:00 Ferrous Sulfate (Ferrous Sulfate (Ec)) 325 mg TID PO Last administered on 02/11/19 13:42; Admin Dose 325 MG; Start 02/11/19 at 09:00 Ranitidine HCl (Zantac) 150 mg BID PO Last administered on 02/11/19 09:49; Admin Dose 150 MG; Start 02/10/19 at 21:00 Diazepam (Valium) 5 mg Q4H PRN PO .MUSCLE SPASM Last administered on 02/10/19 22:04; Admin Dose 5 MG; Start 02/10/19 at 10:30 Diazepam (Valium) 5 mg Q4H PRN IM .MUSCLE SPASM; Start 02/10/19 at 10:30 Phenol (Cepastat Lozenge) 1 lozenge PRN PRN MT .SORE THROAT Last administered on 02/10/19 22:03; Admin Dose 1 LOZENGE; Start 02/10/19 at 10:30 Diphenhydramine HCl (Benadryl) 50 mg Q6H PRN PO .PRURITUS Last administered on 02/11/19 04:25; Admin Dose 50 MG; Start 02/10/19 at 10:30 IV Flush (NS 3 ml) 3 ml PER PROTOCOL IV ; Start 02/10/19 at 10:30 Naloxone HCl (Narcan) 0.2 mg Q2M PRN IV RR 8 BREATHS/MIN OR LESS; Start 02/10/19 at 10:30 Hydromorphone HCl (Dilaudid BAT LATHE OPERATOR) Q4PCA IV Last administered on 02/11/19 04:31; Admin Dose 6 MG; Start 02/10/19 at 12:30 Aripiprazole (Abilify) 5 mg DAILY PO Last administered on 02/11/19 09:53; Admi n Dose 5 MG; Start 02/11/19 at 09:00 Bupropion HCl (Wellbutrin Xl) 450 mg DAILY PO Last administered on 02/11/19 09:53; Admin Dose 450 MG; Start 02/11/19 at 09:00 Lorazepam (Ativan) 1 mg HS PRN PO ANXIETY Last administered on 02/11/19 04:25; Admin Dose 1 MG; Start 02/10/19 at 14:30 Trimethoprim/ Sulfamethoxazole (Bactrim (Ds)) 1 tab BID PO Last administered on 02/11/19 09:54; Admin Dose 1 TAB; Start 02/10/19 at 21:00; Stop 02/17/19 at 10:00 Ursodiol (Kristel) 1,000 mg HS PO Last administered on 02/10/19 22:04; Admin Dose 1,000 MG; Start 02/10/19 at 21:00 Sumatriptan Succinate (Imitrex) 50 mg DAILY PRN PO HEADACHE; Start 02/10/19 at 20:00 Metoclopramide HCl (Reglan) 10 mg Q6H PRN IV NAUSEA; Start 02/11/19 at 06:00 Bethanechol Chloride (Urecholine) 25 mg PRN PRN PO UNABLE TO VOID Last administered on 02/11/19 09:52; Admin Dose 25 MG; Start 02/11/19 at 08:00 Hydromorphone HCl (Dilaudid) 2 mg Q4H PRN PO PAIN LEVEL 6-10 Last administered on 02/11/19 15:06; Admin Dose 2 MG; Start 02/11/19 at 14:55 SHASHANK GREEN MD Feb 11, 2019 18:07
[2019-02-11] MEDS: oxyCODONE 5 MG TAB PO PRN (19:27)
[2019-02-11 20:17] VITALS: BP 134/66; PULSE 100; RESP 18
[2019-02-11] MEDS: PREGABALIN 50 MG CAP PO SCH (20:23)
[2019-02-11] MEDS: URSODIOL 250 MG TAB PO SCH (21:23)
[2019-02-12 02:14] VITALS: BP 117/59; PULSE 103; RESP 18
[2019-02-12] MEDS: oxyCODONE 5 MG TAB PO PRN ×3 (06:27→15:24)
--- NOTE | 2019-02-12 06:50 | PN ---
Date/Time of Note Date/Time of Note DATE: 02/12/19 TIME: 06:49 Assessment/Plan Lines/Catheters IV Catheter Type (from Nrsg): Saline Lock Barrett in Place (from Nrsg): Yes Subjective 24 Hr Interval Summary Patient is postop day #2 following a microdiscectomy at L4-5 and L5-S1 on the right. She is resting comfortably in bed. Neurovascular structures are intact distally. Hemovac was removed yesterday, and her wound was redressed. She was not cleared for discharge yesterday by physical therapy, however I anticipate she will be clear today. She has been given strict discharge precautions and instructions as well as follow-up arrangements. Exam/Review of Systems Vital Signs Vitals Vital Signs Date Temp Pulse Resp B/P (MAP) Pulse Ox O2 O2 Flow FiO2 Time Delivery Rate 02/12/19 99.1 103 18 117/59 93 02:14 (78) 02/11/19 Room Air 14:31 02/11/19 2.0 01:39 Intake and Output 02/11/19 02/11/19 02/12/19 1515:00 23:00 07:00 IntakeIntake Total 400 ml 800 ml OutputOutput Total 20 ml BalanceBalance 380 ml 800 ml Results Result Diagram: 02/11/19 0431 02/11/19 0431 CHRISTIANO SMITH MD Feb 12, 2019 06:50
[2019-02-12 08:22] VITALS: BP 141/70; PULSE 104; RESP 18
[2019-02-12] MEDS: BUPROPION (XL) 150 MG TAB PO SCH (09:15)
[2019-02-12] MEDS: DOCUSATE SODIUM 100 MG CAP PO SCH (09:15)
[2019-02-12] MEDS: PREGABALIN 50 MG CAP PO SCH ×2 (09:16→13:20)
[2019-02-12] MEDS: FERROUS SULFATE (EC) 325 MG TAB PO SCH ×2 (09:16→13:20)
[2019-02-12] MEDS: TRIMETHOPRIM/SULFAMETHOX (DS) TAB PO SCH (09:17)
[2019-02-12] MEDS: ASCORBIC ACID 500 MG TAB PO SCH (09:17)
[2019-02-12] MEDS: RANITIDINE 150 MG TAB PO SCH (09:18)
[2019-02-12] MEDS: ARIPIPRAZOLE 5 MG TAB PO SCH (09:18)
[2019-02-12] MEDS ORDERED: PREG50CA PO (14:20)
[2019-02-12] MEDS ORDERED: OXYC-481 PO (14:20)
[2019-02-12] MEDS ORDERED: SULF-182 PO (14:20)
[2019-02-12] MEDS ORDERED: FER325 PO (14:20)
--- NOTE | 2019-02-12 14:27 | DS ---
Date/Time of Note Date/Time of Note DATE: 02/12/19 TIME: 14:21 Discharge Summary Admission/Discharge Info Admit Date/Time Feb 10, 2019 at 05:54 Discharge Date/Time 02/12/2019 @1400 Discharge Diagnosis status post lumbar microdiskectomy Patient Condition: Good Procedures OPERATIVE PROCEDURE PERFORMED: 1. Right hemilaminotomy, L4. 2. Right hemil aminectomy L5. 3. Microdiskectomy L4-L5 and L5-S1 on the right. 4. Medial facetectomy and foraminotomy L4-L5 and L5-S1 on the right. 5. Cosmetic wound closure (5 cm). 6. Lateral localizing lumbar radiographs (2). 7. Intraoperative nerve monitoring (2 hours and 45 minutes). Hx of Present Illness 63 y/o C F w/ h/o depression, PBC, migraines, menopause who has had progressive lumbar pain w/ radiculopathy. Sought consultation w/ ortho who found pt. has HD. Taken on day of admission for microdiskectomies and lumbar lami Hospital Course Pt. did well although did struggle w/ pain control once IV narcotics d/c'ed. Unable to tolerate acetaminophen due to PBC so started on oral dilaudid. This was ineffective so changed to oxycodone w/ addition of tid Lyrica 50 mg. Pt. w/ marked improvement. Did well w/ PT. Lumbar drain removed on POD#1. Pt. ready for d/c home on POD#2. Home Meds Active Scripts Ferrous Sulfate* (Ferrous Sulfate*) 325 Mg Tabec, 325 MG PO DAILY for 30 Days, #30 TAB 0 Refills Prov:SHASHANK GREEN MD 02/12/19 Sulfamethoxazole/Trimethoprim (Sulfamethoxazole-Tmp Ds Tablet) 1 Each Tablet, 1 TAB PO BID for 5 Days, #10 TAB 0 Refills Prov:SHASHANK GREEN MD 02/12/19 Reported Medications Lorazepam* (Lorazepam*) 1 Mg Tablet, 1 MG PO HS PRN for ANXIETY, #30 TAB 02/10/19 Aripiprazole* (Abilify*) 5 Mg Tab, 5 MG PO DAILY, #30 TAB 02/10/19 Bupropion Hcl* (Wellbutrin XL*) 150 Mg Tab.sr.24h, 450 MG PO DAILY, TAB.SA 6/17/19 Desipramine Hcl* (Desipramine Hcl*) 150 Mg Tablet, 150 MG PO HS, TAB 02/10/19 Ursodiol (Kristel Forte) 500 Mg Tablet, 2 TAB ORAL QHS 02/10/19 Follow-up Plan f/u w/ Dr. Estrella 1 week Primary Care Provider Not On Staff Doctor Time spent on discharge: > 30 minutes Pending Labs Laboratory Tests Test 02/12/19 08:10 Lab Scanned Report REFER[facility] LAB [id number] SHASHANK GREEN MD Feb 12, 2019 14:27
== END 2019-02-12 18:59 | disposition home or self-care (01) | DRG 519 ==
LOC: REC 05:54 → MS1 11:40
PROVIDERS: ADMIT Orthopaedic Surgery; ATTEND Orthopaedic Surgery
PROC: 0SB20ZZ Excision of Lumbar Vertebral Disc, Open Approach (ICD-10-PCS; 2019-02-10)
PROC: 01NB0ZZ Release Lumbar Nerve, Open Approach (ICD-10-PCS; principal; 2019-02-10 07:00)
DX: M51.16 Intervertebral disc disorders with radiculopathy, lumbar region (principal); N39.0 Urinary tract infection, site not specified; M51.17 Intervertebral disc disorders with radiculopathy, lumbosacral region; B96.20 Unspecified Escherichia coli [E. coli] as the cause of diseases classified elsewhere; K74.3 Primary biliary cirrhosis; F33.42 Major depressive disorder, recurrent, in full remission; K59.03 Drug induced constipation; T40.2X5A Adverse effect of other opioids, initial encounter; Y92.230 Patient room in hospital as the place of occurrence of the external cause
CPT/HCPCS: 72020; 80048; 81003; 85014; 85018; 86850; 86900; 86901; 86920; 87086; 88304; 97116; 97161; 97530; J0690; J1100; J1170; J2250; J2370; J2405; J2765; J3010; J7042